=== PATIENT | male | born 1990 ===

== ENCOUNTER 2017-11-02 16:38 | Emergency (ER) | payer OTHER ==
[2017-11-02 16:47] VITALS: BP 118/74; PULSE 93; TEMP 97.7; O2SAT 98
--- NOTE | 2017-11-02 17:06 | C.PDOC ---
History Of Present Illness 27 y/o M c no PMHx p/w penile lesion x 4-5 days. Describes it as itchy but denies any trauma, discharge, pain, sexual activity for 1 year, fever. Time Seen by Provider: 11/02/17 16:49 Chief Complaint (Nursing): Abnormal Skin Integrity Past Medical History Vital Signs: Last Vital Signs Temp 97.7 F 11/02/17 16:45 Pulse 93 H 11/02/17 16:45 Resp 18 11/02/17 16:45 BP 118/74 11/02/17 16:45 Pulse Ox 98 11/02/17 17:22 Family History: States: No Known Family Hx - Social History Hx Alcohol Use: No Hx Substance Use: No - Immunization History Hx Tetanus Toxoid Vaccination: No Hx Influenza Vaccination: No Hx Pneumococcal Vaccination: No Review Of Systems Except As Marked, All Systems Reviewed And Found Negative. Constitutional: Negative for: Fever Respiratory: Negative for: Shortness of Breath Physical Exam - Physical Exam Additional Physical Exam Comments: Gen: NAD Head: NC/AT Eyes: PERRL ENT: MMM Neck: Supple Chest: No tenderness CV: Regular rate Lungs: CTA b/l Abd: Soft, NT : No inguinal lymphadenopathy. No scrotal tenderness or swelling. Uncircumcised. R lateral penile shaft with 1.5 cm lesion, mildly erythematous, nontender with shallow ulceration. No penile discharge. Back: No CVA tenderness Extremities: No edema Skin: No rash Neuro: Alert, no focal deficit ED Course And Treatment O2 Sat by Pulse Oximetry: 98 Medical Decision Making Medical Decision Making: Differential includes syphilis chancre, other STD, friction abrasion. Will send for RPR, empirically treat for GC/Chlamydia. Treated empircally, RPR negative. F/u PMD. Disposition - Disposition Referrals: [facility] at [facility] [Outside] Disposition: HOME/ ROUTINE Disposition Time: 18:55 Condition: STABLE Prescriptions: Bacitracin Ointment [Bacitracin] 1 appl TOP TID #1 tube Forms: [employer] (Macedonian) - Clinical Impression Clinical Impression: Penile lesion
[2017-11-02] MEDS ORDERED: cefTRIAXone (Rocephin) 250 mg Inj IM STA (18:53)
[2017-11-02 19:18] VITALS: RESP 20
== END 2017-11-02 19:17 | disposition home or self-care (01) ==
LOC: C.ER 16:38
DX: N48.9 Disorder of penis, unspecified (principal)
CPT/HCPCS: 86592; 87491; 87591; 96372; 99283; J0696

== ENCOUNTER 2017-11-09 14:38 | Emergency (ER) | payer OTHER ==
[2017-11-09 14:46] VITALS: BP 120/73; PULSE 86; RESP 16; TEMP 98.6; O2SAT 98
--- NOTE | 2017-11-09 15:24 | C.PDOC ---
History Of Present Illness 27 y/o male presents to the ER for re-evaluation of penile growth. Patient was seen 1 week ago for the same penile growth. Patient states the area is not painful to touch, but has raised borders. Patient had RPR which was negative. G/ C was also sent and patient was treated prophylactically, and advised to follow up in the clinic for results. Patient did not understand directions and returned to the ER today. Otherwise he denies any fever, chills, or changes in the lesion. Time Seen by Provider: 11/09/17 15:19 Chief Complaint (Nursing): Male Genitourinary History Per: Patient History/Exam Limitations: no limitations Onset/Duration Of Symptoms: Days Current Symptoms Are (Timing): Still Present Past Medical History Reviewed: Historical Data, Nursing Documentation, Vital Signs Vital Signs: Last Vital Signs Temp 98.6 F 11/09/17 14:45 Pulse 86 11/09/17 14:45 Resp 16 11/09/17 14:45 BP 120/73 11/09/17 14:45 Pulse Ox 98 11/09/17 15:37 Surgical History: No Surg Hx Family History: States: No Known Family Hx - Social History Hx Tobacco Use: No Hx Alcohol Use: No Hx Substance Use: No - Immunization History Hx Tetanus Toxoid Vaccination: No Hx Influenza Vaccination: No Hx Pneumococcal Vaccination: No Review Of Systems Except As Marked, All Systems Reviewed And Found Negative. Constitutional: Negative for: Fever, Chills Genitourinary: Positive for: Other (Penile growth). Negative for: Dysuria, Frequency, Incontinence, Hematuria, Penile Discharge, Scrotal Pain, Penile Pain Physical Exam - Physical Exam Appears: Non-toxic, No Acute Distress Skin: Warm, Dry Head: Atraumatic, Normacephalic Eye(s): bilateral: Normal Inspection Neck: Normal ROM, Supple Chest: Symmetrical Respiratory: No Accessory Muscle Use, Other (No respiratory distress) Gastrointestinal/Abdominal: Soft, No Tenderness, No Distention Male Genital: Other (Round, raised, pink, ulcer-like lesion, on the right side of shaft, not tender to palpation, w/ no drainage) Extremity: Bilateral: Atraumatic, Normal ROM Neurological/Psych: Oriented x3, Normal Speech ED Course And Treatment O2 Sat by Pulse Oximetry: 98 (RA) Pulse Ox Interpretation: Normal Progress Note: Reassured patient that all testing was negative and there is no need for further ER treatment. Patient expressing understanding of the plan to follow up in the clinic for biopsy or further evaluation. Disposition - Disposition Referrals: [facility] at [facility] [Outside] Disposition: HOME/ ROUTINE Disposition Time: 15:36 Condition: STABLE Additional Instructions: Follow up with PMD within 1-2 days. Return to ED if feel worse. Instructions: Skin Biopsy Forms: [employer] (Gibraltarian) Print Language: PERSIAN - Clinical Impression Clinical Impression: Penile lesion - PA / DR[employer] HAND / Resident Statement MD/DO has reviewed & agrees with the documentation as recorded. - Scribe Statement The provider has reviewed the documentation as recorded by the Scribe (Marleny Lauren) All medical record entries made by the Scribe were at my direction and personally dictated by me. I have reviewed the chart and agree that the record accurately reflects my personal performance of the history, physical exam, medical decision making, and the department course for this patient. I have also personally directed, reviewed, and agree with the discharge instructions and disposition.
== END 2017-11-09 15:45 | disposition home or self-care (01) ==
LOC: C.ER 14:38
DX: N48.89 Other specified disorders of penis (principal)